=== PATIENT | male | born 1995 | race Caucasian/White ===

== ENCOUNTER 2025-03-30 08:04 | Emergency (ER) | payer OTHER ==
[~2025-03-30] VITALS: Ht 172.7 cm; Wt 107.0 kg
[~2025-03-30 08:04] MED LIST: BACTRIM DS TAB1 EACH PO; OMEPRAZOLE20 MG PO
[2025-03-30 08:27] LABS: BASOPHILS 0.6 % (0.2-1.2); EOSINOPHILS 2.1 % (0.8-7.0); LYMPHOCYTES 20.6 % (21.8-53.1); MCH 32.4 PG (25.7-32.2); MCHC 34.6 g/dL (32.3-36.5); MCV 93.8 fL (79.0-92.2); MONOCYTES 8.5 % (5.3-12.2); NEUTROPHILS 67.9 % (34.0-67.9); RBC 5.64 M/uL (4.63-6.08)
[2025-03-30 08:43] LABS: ALT (SGPT) 168.0 U/L (14-59); AST (SGOT) 60.0 U/L (15-37); GLOMERULAR FILTRATION RATE,EST 108.0 mL/min (>60); PROTEIN, TOTAL 8.0 g/dL (6.4-8.2); UREA NITROGEN 9.0 mg/dL (7-18)
[2025-03-30] MEDS ORDERED: SODIUM CHLORIDE 0.9% 1,000 ML IV PRN (09:30)
[2025-03-30] MEDS ORDERED: MORPHINE SULFATE 4 MG/ML VIAL IV ONE (09:30)
[2025-03-30 11:03] LABS: BLOOD/HGB, URINE NEGATIVE (Negative); KETONE, URINE TRACE (Negative); LEUK ESTERASE, URINE NEGATIVE (negative); NITRITE, URINE NEGATIVE (negative)
[2025-03-30 11:25] VITALS: BP 137/95
== END 2025-03-30 11:25 | disposition home or self-care (01) ==
LOC: ED 08:04
PROVIDERS: Emergency Medicine
DX: R10.30 Lower abdominal pain, unspecified (principal); K92.1 Melena; F17.200 Nicotine dependence, unspecified, uncomplicated; Z88.6 Allergy status to analgesic agent; Z88.1 Allergy status to other antibiotic agents
CPT/HCPCS: 36415; 74177; 80053; 81003; 83690; 85025; 96374; 96375; 99284-25; J2270; J2405; J7030; Q9967